=== PATIENT | female | born 1970 | race Caucasian/White ===

== ENCOUNTER → 2016-05-26 | Outpatient (CLI) | payer BC ==
[~2016-05-26] MED LIST: ATIVAN1 MG PO; COUMADIN10 MG PO; COUMADIN5 MG PO; EFFEXOR XR75 MG PO; PRENATAL PLUS I1 TAB PO; PROTONIX40 MG PO; ULTRAM50 MG PO
== END | disposition short-term general hospital (02) ==
LOC: CLPAIN 10:14
DX: M47.27 Other spondylosis with radiculopathy, lumbosacral region (principal); M70.62 Trochanteric bursitis, left hip; M70.61 Trochanteric bursitis, right hip

== ENCOUNTER 2016-06-16 12:03 | Day surgery (SDC) | payer BC | END 2016-06-16 14:10 | disposition short-term general hospital (02) | LOC: SURGOP 12:03 | PROC: 3E0R3BZ Introduction of Anesthetic Agent into Spinal Canal, Percutaneous Approach (ICD-10-PCS; principal; 2016-06-16) | PROC: 3E0R33Z Introduction of Anti-inflammatory into Spinal Canal, Percutaneous Approach (ICD-10-PCS; 2016-06-16) | DX: M47.816 Spondylosis without myelopathy or radiculopathy, lumbar region (principal); M70.61 Trochanteric bursitis, right hip; M70.62 Trochanteric bursitis, left hip; G57.12 Meralgia paresthetica, left lower limb; Z88.0 Allergy status to penicillin; Z90.49 Acquired absence of other specified parts of digestive tract | CPT/HCPCS: J1040 ==

== ENCOUNTER → 2016-06-30 | Outpatient (CLI) | payer BC | END | disposition short-term general hospital (02) | LOC: CLPAIN 08:08 | DX: M47.897 Other spondylosis, lumbosacral region (principal); M72.2 Plantar fascial fibromatosis ==

== ENCOUNTER 2016-07-28 10:37 | Day surgery (SDC) | payer BC ==
[~2016-07-28] VITALS: Ht 162.6 cm; Wt 103.4 kg
== END 2016-07-28 14:24 | disposition short-term general hospital (02) ==
LOC: SURGOP 10:37
DX: M47.816 Spondylosis without myelopathy or radiculopathy, lumbar region (principal); I82.409 Acute embolism and thrombosis of unspecified deep veins of unspecified lower extremity; Z79.01 Long term (current) use of anticoagulants
CPT/HCPCS: J2250; J3010